=== PATIENT | female | born 1950 | race Caucasian/White ===

== ENCOUNTER 2017-04-30 06:55 | Outpatient (CLI) | payer OTHER ==
--- NOTE | 2017-05-04 09:56 | XRAY Report ---
DATE OF SERVICE: 04/30/2017 THREE VIEW LEFT KNEE: 04/30/2017 CLINICAL INDICATION: Pain. FINDINGS: AP, lateral, sunrise views of the left knee demonstrate no evidence of fracture or disloca tion. The joint spaces are preserved. No effusion is present. IMPRESSION: Normal left knee. TD: 04/30/2017 19:08
== END 2017-04-30 06:56 | disposition home or self-care (01) ==
LOC: DI 06:55
PROVIDERS: ATTEND Physician Assistant Medical
DX: M25.562 Pain in left knee (principal)

== ENCOUNTER 2017-08-05 08:00 | Outpatient (CLI) | payer OTHER ==
[2017-08-05 12:19] LABS: BASOPHILS % (AUTO) 0.9 %; EOSINOPHILS # (AUTO) 0.1 10^3/uL (0.0-0.7); EOSINOPHILS % (AUTO) 2.1 %; HGB - HEMOGLOBIN 13.5 g/dL (12.0-16.0); LYMPHOCYTES # (AUTO) 1.3 10^3/uL (1.5-3.5); LYMPHOCYTES % (AUTO) 26.6 %; MEAN CORPUSCULAR HEMOGLOBIN 29.5 pg (27.0-31.0); MEAN CORPUSCULAR HGB CONC 33.7 g/dL (32.0-36.0); MEAN CORPUSCULAR VOLUME 87.7 fL (81.0-99.0); MEAN PLATELET VOLUME 7.4 fL (7.9-10.8); MONOCYTES # (AUTO) 0.3 10^3/uL (0.0-1.0); MONOCYTES % (AUTO) 5.7 %; NEUTROPHILS # (AUTO) 3.3 10^3/uL (1.5-6.6); NEUTROPHILS % (AUTO) 64.7 %; PLT - PLATELET COUNT 245 10^3/uL (130-450); RED BLOOD COUNT 4.56 10^6/uL (4.20-5.40); RED CELL DISTRIBUTION WIDTH 13.6 % (12.0-15.0); WHITE BLOOD COUNT 5.1 x10^3/uL (4.8-10.8)
[2017-08-05 12:33] LABS: ALBUMIN 4.2 g/dL (3.2-5.5); ALBUMIN/GLOBULIN RATIO 1.4 (1.0-2.2); ALKALINE PHOSPHATASE 74 IU/L (42-121); ALT ALANINE AMINOTRANSFERASE 10 IU/L (10-60); AST ASPARTATE AMINOTRANSFERASE 12 IU/L (10-42); BILIRUBIN,TOTAL 0.3 mg/dL (0.2-1.0); BUN - BLOOD UREA NITROGEN 14 mg/dL (6-20); CALCIUM 9.2 mg/dL (8.5-10.3); CARBON DIOXIDE - CO2 29 mmol/L (21-32); CHLORIDE 101 mmol/L (101-111); CHOL/HDL RATIO 4.6 (<4.4); CHOLESTEROL 263 mg/dL; CREATININE 0.7 mg/dL (0.4-1.0); GFR - MDRD 84 (>89); GLUCOSE 83 mg/dL (70-100); HDL CHOLESTEROL 57 mg/dL; LDL CHOLESTEROL,CALCULATED 181 mg/dL; LDL/HDL RATIO 3.2 (<4.4); SODIUM 136 mmol/L (135-145); TOTAL PROTEIN 7.3 g/dL (6.7-8.2); VLDL CHOLESTEROL 25 mg/dL
[2017-08-05 13:41] LABS: THYROID STIMULATING HORMONE 2.59 uIU/mL (0.34-5.60)
[2017-08-06 13:31] LABS: HEPATITIS C ANTIBODY NON-REACTIVE (NON-REACTIVE)
== END 2017-08-05 08:01 | disposition home or self-care (01) ==
LOC: LAB.R 08:00
PROVIDERS: ATTEND Physician Assistant Medical
DX: E55.9 Vitamin D deficiency, unspecified (principal); R53.83 Other fatigue; E78.2 Mixed hyperlipidemia; Z11.59 Encounter for screening for other viral diseases; Z72.89 Other problems related to lifestyle; Z79.899 Other long term (current) drug therapy
CPT/HCPCS: 80053; 80061; 82306; 82607; 83721; 84443; 85025; 86803

== ENCOUNTER 2018-02-22 08:14 | Outpatient (CLI) | payer MEDICARE ==
[2018-02-22 13:50] LABS: CHOL/HDL RATIO 3.8 (<4.4); CHOLESTEROL 227 mg/dL; HDL CHOLESTEROL 60 mg/dL; LDL CHOLESTEROL,CALCULATED 142 mg/dL; LDL/HDL RATIO 2.4 (<4.4); VLDL CHOLESTEROL 25 mg/dL
== END 2018-02-22 08:15 | disposition home or self-care (01) ==
LOC: LAB.R 08:14
PROVIDERS: ATTEND Physician Assistant Medical
DX: E78.2 Mixed hyperlipidemia (principal); Z79.899 Other long term (current) drug therapy
CPT/HCPCS: 80061; 83721

== ENCOUNTER 2018-03-10 21:35 | Emergency (ER) | payer MEDICARE ==
[2018-03-10 22:08] LABS: BILIRUBIN,URINE NEGATIVE (NEGATIVE); GLUCOSE, URINE (UA) NEGATIVE (NEGATIVE); KETONES,URINE (UA) NEGATIVE (NEGATIVE); LEUKOCYTE ESTERASE, URINE SMALL (NEGATIVE); NITRITE,URINE NEGATIVE (NEGATIVE); OCCULT BLOOD,URINE MODERATE (NEGATIVE); PH,URINE 5.5 PH (5.0-7.5); PROTEIN,URINE 100 mg/dL (NEGATIVE); UROBILINOGEN,URINE 0.2 (NORMAL) E.U./dL (NORMAL)
[2018-03-10 22:10] LABS: CLARITY,URINE HAZY (CLEAR)
[2018-03-10] MEDS ORDERED: SODIUM CHLORIDE 0.9% 1,000 ML IV ONE (22:10)
--- NOTE | 2018-03-10 22:13 | ED Physician Documentation ---
PD HPI ABD PAIN - Stated complaint Stated Complaint: ABX PX/VOMITING - Chief complaint Chief Complaint: Abd Pain - History obtained from History obtained from: Patient, Family - History of Present Illness Timing - onset: Yesterday Timing - duration: Hours Timing - details: Abrupt onset, Now resolved Quality: Sharp, Pain Location: RLQ Radiation: Right flank Improved by: Meds (aleve helped yesterday) Worsened by: Other (leaning foreward onto all fours) Associated symptoms: Nausea, Vomiting Similar symptoms before: Has not had sx before Recently seen: Not recently seen - Additional information Additional information: Previously well 67-year-old female developed some acute right lower quadrant abdominal pain yesterday and this was severe and she had some resolution of the pain at the night and was able to sleep through the night. She had return of the pain this morning it is come and gone and she is now had severe pain a accompanied by nausea and vomiting. She relates that she is not able to get into any comfortable position with this and she is not able to make this pain worse. Here in the emergency department she has had a resolution of her pain and then again a mild bump in the pain. She has not had this type of pain previously. She has had her appendix out. Review of Systems Constitutional: denies: Fever, Chills, Myalgias Eyes: denies: Decreased vision Ears: denies: Ear pain Nose: denies: Congestion Throat: denies: Sore throat Cardiac: denies: Chest pain / pressure, Palpitations Respiratory: denies: Dyspnea, Cough GI: reports: Abdominal Pain, Nausea, Vomiting : denies: Dysuria, Frequency Skin: denies: Rash Musculoskeletal: denies: Neck pain, Back pain, Extremity pain Neurologic: denies: Generalized weakness, Focal weakness, Numbness PD PAST MEDICAL HISTORY - Past Medical History Cardiovascular: None Respiratory: None Endocrine/Autoimmune: None GI: None : None HEENT: None Psych: Anxiety, Claustrophobia Musculoskeletal: Other Derm: Eczema - Past Surgical History 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 - Present Medications Home Medications: Ambulatory Orders Medication Instructions Recorded Confirmed Triamcinolone 0.1% Cream [Kenalog 03/19/16 0.1% Cream] Hormone Tablet 03/10/18 Hydrocodone/Acetaminophen 1 - 2 each PO Q6H PRN #14 tablet 03/11/18 [Hydrocodon-Acetaminophen 5-325] - Allergies Allergies/Adverse Reactions: Allergies Allergy/AdvReac Type Severity Reaction Status Date / Time amoxicillin trihydrate * Allergy diarrhea Verified 03/10/18 21:43 [From Augmentin] codeine Allergy Nausea Verified 03/10/18 21:43 oxycodone HCl * Allergy Nausea Verified 03/10/18 21:43 [From OxyContin] potassium clavulanate * Allergy diarrhea Verified 03/10/18 21:43 [From Augmentin] - Social History Does the pt smoke?: No Smoking Status: Never smoker Does the pt drink ETOH?: Yes Does the pt have substance abuse?: No PD ED PE NORMAL - Vitals Vital signs reviewed: Yes (normal) - General General: Alert and oriented X 3, No acute distress, Well developed/nourished - HEENT HEENT: Atraumatic, PERRL, EOMI - Neck Neck: Supple, no meningeal sign - Cardiac Cardiac: RRR, No murmur - Respiratory Respiratory: No respiratory distress, Clear bilaterally - Abdomen Abdomen: Normal bowel sounds, Soft, Non tender, Non distended, No organomegaly - Back Back: No CVA TTP, No spinal TTP - Derm Derm: Normal color, Warm and dry, No rash - Extremities Extremities: No deformity, No edema - Neuro Neuro: Alert and oriented X 3, strike plate attacher 2-12 intact, No motor deficit, No sensory deficit, Normal speech Eye Opening: Spontaneous Motor: Obeys Commands Verbal: Oriented GCS Score: 15 - Psych Psych: Normal mood, Normal affect Results - Vitals Vitals: Vital Signs - 24 hr 03/10/18 03/11/18 21:39 00:01 Temperature 36 C L Heart Rate 73 82 Respiratory 18 16 Rate Blood Pressure 133/65 H 141/58 H O2 Saturation 100 98 Oxygen O2 Source Room air - Labs Labs: Laboratory Tests 03/10/18 03/10/18 03/10/18 21:48 22:35 22:35 WBC 7.4 RBC 4.22 Hgb 12.7 Hct 36.9 L MCV 87.5 MCH 30.2 MCHC 34.5 RDW 13.8 Plt Count 267 MPV 7.6 L Neut # (Auto) 5.5 Lymph # (Auto) 1.3 L [place] # (Auto) 0.4 Eos # (Auto) 0.1 Baso # (Auto) 0.0 Absolute Nucleated RBC 0.00 Nucleated RBC % 0.1 Sodium 138 Potassium 3.3 L Chloride 105 Carbon Dioxide 25 Anion Gap 8.0 BUN 17 Creatinine 0.6 Estimated GFR (MDRD) 100 Glucose 98 Calcium 8.8 Total Bilirubin 0.3 AST 12 ALT < 10 L Alkaline Phosphatase 93 Total Protein 6.5 L Albumin 3.9 Globulin 2.6 Albumin/Globulin Ratio 1.5 Lipase 43 Urine Color YELLOW Urine Clarity HAZY Urine pH 5.5 Ur Specific [place] >=1.030 H Urine Protein 100 H Urine Glucose (UA) NEGATIVE Urine Ketones NEGATIVE Urine Occult Blood MODERATE H Urine Nitrite NEGATIVE Urine Bilirubin NEGATIVE Urine Urobilinogen 0.2 (NORMAL) Ur Leukocyte Esterase SMALL H Urine RBC 11-25 H Urine WBC 6-10 H Ur Squamous Epith Cells MOD Squamous H Urine Crystals 11-25 Ca Oxalate Urine Bacteria Few Ur Microscopic Review INDICATED Urine Culture Comments NOT INDICATED 03/10/18 23:23 WBC RBC Hgb Hct MCV MCH MCHC RDW Plt Count MPV Neut # (Auto) Lymph # (Auto) [place] # (Auto) Eos # (Auto) Baso # (Auto) Absolute Nucleated RBC Nucleated RBC % Sodium Potassium Chloride Carbon Dioxide Anion Gap BUN Creatinine Estimated GFR (MDRD) Glucose Calcium Total Bilirubin AST ALT Alkaline Phosphatase Total Protein Albumin Globulin Albumin/Globulin Ratio Lipase Urine Color YELLOW Urine Clarity CLEAR Urine pH 6.0 Ur Specific [place] <=1.005 Urine Protein NEGATIVE Urine Glucose (UA) NEGATIVE Urine Ketones NEGATIVE Urine Occult Blood SMALL H Urine Nitrite NEGATIVE Urine Bilirubin NEGATIVE Urine Urobilinogen 0.2 (NORMAL) Ur Leukocyte Esterase TRACE H Urine RBC 0-5 Urine WBC 0-3 Ur Squamous Epith Cells RARE Squamous Urine Crystals Urine Bacteria Rare Ur Microscopic Review INDICATED Urine Culture Comments INDICATED - Rads (name of study) CT ab/pel without Radiology: Prelim report reviewed (Impression: 1. There is a 12 x 9 mm right ureteropelvic junction stone resulting in mild pelviectasis. 2 Right nephrolithiasis. 3 Right pelvic 6 x 3.5 cm cystic lesion. Pelvic ultrasound recommended for further characterization.), EMP read indepedently, See rad report pelvic ultrasound Radiology: Prelim report reviewed (Impression, 1. Normal uterus. 2 Right pelvic 4.9 cm simple cyst demonstrating benign features. 6-12-month follow-up pelvic ultrasound recommended. 2 Nonvisualization of left ovary.), EMP read indepedently, See rad report Procedures - Bedside sono Bedside sono by EMP: With use of bedside ultrasound the right kidney is imaged there is minimal hydronephrosis present. The kidney is sonographically nontender. PD MEDICAL DECISION MAKING - ED course Complexity details: reviewed old records, reviewed results, re-evaluated patient, considered differential, d/w patient, d/w family ED course: 67-year-old previously well female has developed some pain in her right flank that has been present intermittently for 2 months. She has been into see the doctor in the chiropractor. She states the symptoms have been off and on and today we have discovered that she has a large stone in the collecting system that is attempting to pass. It appears to be too large to pass and she will need referral to urology. Today we were concerned about the possibility of infection and obtained a catheterized urine specimen which did not appear to demonstrate infection. The patient's pain resolved in the emergency department and she appears comfortable now. Her laboratory studies were otherwise unremarkable. Her CT scan did demonstrate a cystic mass in the pelvis and this appears to be a simple ovarian cyst. This may be a part of the pain the patient is experiencing yesterday and today but overall appears to be a benign process. The patient will need referral to urology and we will provide some telephone numbers for and I have asked her to call her primary tomorrow for recommendations for a urologist. Departure - Departure Disposition: 01 Home, Self Care Clinical Impression: Ureterolithiasis Condition: Stable Instructions: ED Stone Renal W Colic Follow-Up: Iva Elias PA-C [Primary Care Provider] - Shannon Tariq MD [Physician No Access] - Jose Urbina MD [Physician No Access] - MELANI CLINE [Physician No Access] - Prescriptions: Hydrocodone/Acetaminophen [Hydrocodon-Acetaminophen 5-325] 1 - 2 each PO Q6H PRN #14 tablet PRN Reason: pain Comments: Today it appears that you have 2 large stones in the right kidney 1 of them appears to be trying to pass, and appears to be too large to pass. You will likely need to have lithotripsy done. Referral to a urologist is necessary.
[2018-03-10 22:15] LABS: BACTERIA,URINE Few /HPF (None Seen); CRYSTALS,URINE 11-25 Ca Oxalate /LPF; SQUAMOUS EPITHELIAL CELL,UR MOD Squamous (<= Few)
[2018-03-10 22:42] LABS: BASOPHILS % (AUTO) 0.6 %; EOSINOPHILS # (AUTO) 0.1 10^3/uL (0.0-0.7); HGB - HEMOGLOBIN 12.7 g/dL (12.0-16.0); LYMPHOCYTES # (AUTO) 1.3 10^3/uL (1.5-3.5); MEAN CORPUSCULAR HEMOGLOBIN 30.2 pg (27.0-31.0); MEAN CORPUSCULAR HGB CONC 34.5 g/dL (32.0-36.0); MEAN CORPUSCULAR VOLUME 87.5 fL (81.0-99.0); MEAN PLATELET VOLUME 7.6 fL (7.9-10.8); MONOCYTES # (AUTO) 0.4 10^3/uL (0.0-1.0); MONOCYTES % (AUTO) 5.7 %; NEUTROPHILS # (AUTO) 5.5 10^3/uL (1.5-6.6); NEUTROPHILS % (AUTO) 73.7 %; PLT - PLATELET COUNT 267 10^3/uL (130-450); RED BLOOD COUNT 4.22 10^6/uL (4.20-5.40); RED CELL DISTRIBUTION WIDTH 13.8 % (12.0-15.0); WHITE BLOOD COUNT 7.4 x10^3/uL (4.8-10.8)
[2018-03-10 22:57] LABS: ALBUMIN 3.9 g/dL (3.2-5.5); ALBUMIN/GLOBULIN RATIO 1.5 (1.0-2.2); ALKALINE PHOSPHATASE 93 IU/L (42-121); ALT ALANINE AMINOTRANSFERASE < 10 IU/L (10-60); AST ASPARTATE AMINOTRANSFERASE 12 IU/L (10-42); BILIRUBIN,TOTAL 0.3 mg/dL (0.2-1.0); BUN - BLOOD UREA NITROGEN 17 mg/dL (6-20); CALCIUM 8.8 mg/dL (8.5-10.3); CARBON DIOXIDE - CO2 25 mmol/L (21-32); CHLORIDE 105 mmol/L (101-111); CREATININE 0.6 mg/dL (0.4-1.0); GFR - MDRD 100 (>89); GLUCOSE 98 mg/dL (70-100); LIPASE 43 U/L (22-51); SODIUM 138 mmol/L (135-145); TOTAL PROTEIN 6.5 g/dL (6.7-8.2)
--- NOTE | 2018-03-10 22:59 | CT Report ---
Reason: RLQ pain with mild hydro on bedside Procedure Date: 03/10/2018 Accession Number: [id number] / [id number] Procedure: CT - Abdomen/Pelvis W/O CPT Code: FULL RESULT: EXAM: CT ABDOMEN AND PELVIS (CT KUB) EXAM DATE: 03/10/2018 10:38 PM. CLINICAL HISTORY: RLQ pain with mild hydro on bedside. COMPARISONS: None. TECHNIQUE: Routine axial helical CT imaging was performed through the abdomen and pelvis without IV contrast. Reconstructions: Coronal and sagittal. In accordance with CT protocol optimization, one or more of the following dose reduction techniques were utilized for this exam: automated exposure control, adjustment of mA and/or KV based on patient size, or use of iterative reconstructive technique. FINDINGS: Lung Bases: Unremarkable. Right Kidney/Ureter: There is a 12 x 9 mm stone at the ureteropelvic junction resulting in mild pelviectasis. Additional calyceal stones are seen within the right kidney measuring up to 9 mm. Left Kidney/Ureter: No stones, hydronephrosis, or hydroureter. No perinephric fat stranding. Other Solid Organs: Noncontrast images of the solid organs are grossly unremarkable. Gallbladder/Bile Ducts: Unremarkable. Peritoneal Cavity: No free fluid, free air or heidi adenopathy. Bowel is grossly unremarkable. Pelvic Organs: There is a 6.0 x 3.5 cm right pelvic cyst. No pelvic fluid collections. No lymphadenopathy. Vasculature: Unremarkable. Other: None. IMPRESSION: 1. There is a 12 x 9 mm right ureteropelvic junction stone resulting in mild pelviectasis. 2. Right nephrolithiasis. 3. Right pelvic 6.0 x 3.5 cm cystic lesion. Pelvic ultrasound recommended for further characterization. RADIA
[2018-03-10 23:32] LABS: BILIRUBIN,URINE NEGATIVE (NEGATIVE); GLUCOSE, URINE (UA) NEGATIVE (NEGATIVE); KETONES,URINE (UA) NEGATIVE (NEGATIVE); LEUKOCYTE ESTERASE, URINE TRACE (NEGATIVE); NITRITE,URINE NEGATIVE (NEGATIVE); OCCULT BLOOD,URINE SMALL (NEGATIVE); PROTEIN,URINE NEGATIVE (NEGATIVE); UROBILINOGEN,URINE 0.2 (NORMAL) E.U./dL (NORMAL)
[2018-03-10 23:41] LABS: BACTERIA,URINE Rare /HPF (None Seen); CLARITY,URINE CLEAR (CLEAR); RBC,URINE 0-5 /HPF (0-5); SQUAMOUS EPITHELIAL CELL,UR RARE Squamous (<= Few)
--- NOTE | 2018-03-11 00:21 | Ultrasound Report ---
Reason: RLQ pain Procedure Date: 03/10/2018 Accession Number: [id number] / [id number] Procedure: US - Pelvic w/Doppler Complete CPT Code: FULL RESULT: EXAM: PELVIC ULTRASOUND EXAM DATE: 03/11/2018 12:25 AM. CLINICAL HISTORY: Right lower quadrant pain. COMPARISON: ABDOMEN/PELVIS W/O 03/10/2018 10:34 PM. TECHNIQUE: Realtime transabdominal pelvic scan performed to identify the uterus and adnexa and as an overview of other pelvic structures, with static image documentation. FINDINGS: Uterus: 3.4 x 1.9 x 2.7 cm, volume 9.3 cc. Anteverted position. Normal overall size and echotexture. Masses: None. Endometrium: 2 mm. Normal. Cervix: Unremarkable. Right Ovary: There is a 4.9 x 3.9 x 3.6 cm right pelvic cyst. Adjacent free fluid noted however no normal ovarian tissue seen. Left Ovary: Not well visualized. Free Fluid: None. Other: None. IMPRESSION: 1. Normal uterus. 2. Right pelvic 4.9 cm simple cyst demonstrating benign features. 6-12 month follow-up pelvic ultrasound recommended. 3. Nonvisualization of left ovary. RADIA
[2018-03-11 01:12] VITALS: BP 123/80
== END 2018-03-11 01:22 | disposition home or self-care (01) ==
LOC: ED 21:35
DX: N20.2 Calculus of kidney with calculus of ureter (principal); N94.89 Other specified conditions associated with female genital organs and menstrual cycle
CPT/HCPCS: 36415; 74176; 76856; 80053; 81001; 81003; 83690; 85025; 87086; 93975; 96360; 99283; 99284

== ENCOUNTER 2018-03-15 23:33 | Outpatient (CLI) | payer MEDICARE | END 2018-03-15 23:34 | disposition critical access hospital (66) | LOC: EMS 23:33 | PROVIDERS: ATTEND Surgery | DX: R10.9 Unspecified abdominal pain (principal); R11.0 Nausea | CPT/HCPCS: A0425; A0427 ==

== ENCOUNTER 2018-03-15 23:44 | Emergency (ER) | payer MEDICARE ==
--- NOTE | 2018-03-16 00:29 | ED Physician Documentation ---
PD HPI ABD PAIN - Stated complaint Stated Complaint: FLANK PAIN, N/V - Chief complaint Chief Complaint: Abd Pain - History obtained from History obtained from: Patient - History of Present Illness Timing - onset: Today (this evening) Timing - details: Abrupt onset, Constant, Waxing and waning Pain level max: 10 Pain level now: 10 Quality: Pain Location: RUQ Radiation: Right flank Improved by: Other (nothing) Worsened by: Other (no apparent exacerbating factors) Associated symptoms: Nausea, Vomiting. No: Fever, Diarrhea, Constipation Similar symptoms before: Diagnosis (renal colic) Recently seen: Clinic, Emergency Dept - Additional information Additional information: T+R from this ED 03/10/18, presented with right flank pain and CT revealed a large renal calculus (12mm) in UPJ. She did not require any pain medication in the ED on that visit, as the pain resolved spontaneously. She followed-up with urology in [place] the following day and is scheduled for a procedure towards the end of this month. Tonight, she had sudden recurrence of the pain, right flank. It was initially mild/moderate, and thus she took one dose of Vicodin. The pain rapidly worsened, however, and thus she took a second dose. However, she now had nausea and vomiting. Called 911 and had relief en route with IV fentanyl and zofran. At the time of my evaluation of her, she is again in obvious painful distress and vomiting during HPI Review of Systems Constitutional: reports: Sweats. denies: Fever, Chills Eyes: reports: Reviewed and negative Ears: reports: Reviewed and negative Nose: reports: Reviewed and negative Cardiac: reports: Reviewed and negative Respiratory: reports: Reviewed and negative GI: reports: Abdominal Pain (right flank), Nausea, Vomiting. 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 Medications Home Medications: Ambulatory Orders Medication Instructions Recorded Confirmed Triamcinolone 0.1% Cream [Kenalog 03/19/16 0.1% Cream] Hormone Tablet 03/10/18 Hydrocodone/Acetaminophen 1 - 2 each PO Q6H PRN #14 tablet 03/11/18 [Hydrocodon-Acetaminophen 5-325] - Allergies Allergies/Adverse Reactions: Allergies Allergy/AdvReac Type Severity Reaction Status Date / Time amoxicillin trihydrate * Allergy diarrhea Verified 03/15/18 23:53 [From Augmentin] codeine Allergy Nausea Verified 03/15/18 23:53 oxycodone HCl * Allergy Nausea Verified 03/15/18 23:53 [From OxyContin] potassium clavulanate * Allergy diarrhea Verified 03/15/18 23:53 [From Augmentin] sulfamethoxazole Allergy Nausea Verified 03/15/18 23:53 [From Bactrim] trimethoprim [From Bactrim] Allergy Nausea Verified 03/15/18 23:53 - Social History Does the pt smoke?: No Smoking Status: Never smoker Does the pt drink ETOH?: Yes Does the pt have substance abuse?: No - Immunizations Immunizations are current?: Yes - POLST Patient has POLST: No PD ED PE NORMAL - Vitals Vital signs reviewed: Yes - General General: Alert and oriented X 3, Well developed/nourished, Other (severe painful distress, vomiting) - HEENT HEENT: Moist mucous membranes - Neck Neck: Supple, no meningeal sign - Cardiac Cardiac: No murmur - Respiratory Respiratory: No respiratory distress, Clear bilaterally - Abdomen Abdomen: Soft, Non tender - Back Back: No CVA TTP - Derm Derm: Normal color, Warm and dry - Extremities Extremities: No edema - Neuro Neuro: Alert and oriented X 3 PD ED PE EXPANDED - Cardiac Cardiac: Tachy, Regular Rhythm Results - Vitals Vitals: Vital Signs - 24 hr 03/15/18 03/16/18 03/16/18 23:48 02:58 05:25 Temperature 36.4 C L Heart Rate 69 65 73 Respiratory 16 16 16 Rate Blood Pressure 128/77 136/73 H 113/74 O2 Saturation 98 98 97 Oxygen O2 Source Room air - Labs Labs: Laboratory Tests 03/16/18 03/16/18 03/16/18 01:05 01:12 01:12 WBC 12.8 H RBC 4.30 Hgb 12.8 Hct 37.9 MCV 88.1 MCH 29.8 MCHC 33.8 RDW 14.0 Plt Count 265 MPV 7.8 L Neut # (Auto) 11.3 H Lymph # (Auto) 1.1 L [place] # (Auto) 0.4 Eos # (Auto) 0.0 Baso # (Auto) 0.0 Absolute Nucleated RBC 0.00 Nucleated RBC % 0.0 Sodium 138 Potassium 4.0 Chloride 102 Carbon Dioxide 25 Anion Gap 11.0 BUN 25 H Creatinine 0.9 Estimated GFR (MDRD) 63 L Glucose 147 H Calcium 9.4 Urine Color YELLOW Urine Clarity CLEAR Urine pH 6.0 Ur Specific [place] >=1.030 H Urine Protein NEGATIVE Urine Glucose (UA) NEGATIVE Urine Ketones 15 H Urine Occult Blood MODERATE H Urine Nitrite NEGATIVE Urine Bilirubin NEGATIVE Urine Urobilinogen 0.2 (NORMAL) Ur Leukocyte Esterase TRACE H Urine RBC 6-10 H Urine WBC 6-10 H Ur Squamous Epith Cells FEW Squamous Urine Crystals 3-5 Calcium Oxalate Urine Bacteria Few Ur Microscopic Review INDICATED Urine Culture Comments INDICATED PD MEDICAL DECISION MAKING - ED course Complexity details: reviewed old records, reviewed results, re-evaluated patient, considered differential, d/w patient ED course: patient had significant improvement in her pain with IV dilaudid and zofran in ED, although the pain gradually worsened and required repeat dosing of dilaudid. D/W urology group contract analyst at [place] (Dr. Gibbs, who is the urologist patient saw on Wednesday). After discussion of options, it was agreed that the best plan would be to send patient to [facility] to be admitted to hospitalist for ongoing symptom control and urology can hopefully place a stent later today. D/W Dr. Jacobs (hospitalist at [facility]), accepts transfer Departure - Departure Disposition: 02 Transfer Acute Care Hosp Clinical Impression: Renal colic on right side Condition: Good
[2018-03-16] MEDS ORDERED: KETOROLAC 60 MG/2 ML VIAL IVP STA (00:48)
[2018-03-16] MEDS ORDERED: ONDANSETRON 4 MG/2 ML VIAL IVP STA (00:48)
[2018-03-16] MEDS ORDERED: HYDROmorphone 1 MG/ML CARPUJECT IVP STA ×2 (00:48→06:06)
[2018-03-16 01:21] LABS: BILIRUBIN,URINE NEGATIVE (NEGATIVE); GLUCOSE, URINE (UA) NEGATIVE (NEGATIVE); KETONES,URINE (UA) 15 mg/dL (NEGATIVE); LEUKOCYTE ESTERASE, URINE TRACE (NEGATIVE); NITRITE,URINE NEGATIVE (NEGATIVE); OCCULT BLOOD,URINE MODERATE (NEGATIVE); PROTEIN,URINE NEGATIVE (NEGATIVE); UROBILINOGEN,URINE 0.2 (NORMAL) E.U./dL (NORMAL)
[2018-03-16 01:26] LABS: BASOPHILS % (AUTO) 0.3 %; CALCIUM 9.4 mg/dL (8.5-10.3); CREATININE 0.9 mg/dL (0.4-1.0); EOSINOPHILS % (AUTO) 0.2 %; HGB - HEMOGLOBIN 12.8 g/dL (12.0-16.0); LYMPHOCYTES # (AUTO) 1.1 10^3/uL (1.5-3.5); LYMPHOCYTES % (AUTO) 8.3 %; MEAN CORPUSCULAR HEMOGLOBIN 29.8 pg (27.0-31.0); MEAN CORPUSCULAR HGB CONC 33.8 g/dL (32.0-36.0); MEAN CORPUSCULAR VOLUME 88.1 fL (81.0-99.0); MEAN PLATELET VOLUME 7.8 fL (7.9-10.8); MONOCYTES # (AUTO) 0.4 10^3/uL (0.0-1.0); MONOCYTES % (AUTO) 3.3 %; NEUTROPHILS # (AUTO) 11.3 10^3/uL (1.5-6.6); NEUTROPHILS % (AUTO) 87.9 %; PLT - PLATELET COUNT 265 10^3/uL (130-450); WHITE BLOOD COUNT 12.8 x10^3/uL (4.8-10.8)
[2018-03-16 01:29] LABS: BACTERIA,URINE Few /HPF (None Seen); CLARITY,URINE CLEAR (CLEAR); SQUAMOUS EPITHELIAL CELL,UR FEW Squamous (<= Few)
[2018-03-16 01:30] LABS: CRYSTALS,URINE 3-5 Calcium Oxalate /LPF
[2018-03-16] MEDS ORDERED: SODIUM CHLORIDE 0.9% 500 ML IV STA (04:35)
[2018-03-16] MEDS ORDERED: SODIUM CHLORIDE 0.9% 1,000 ML IV STA (04:35)
[2018-03-16 06:30] VITALS: BP 113/61
== END 2018-03-16 06:58 | disposition short-term general hospital (02) ==
LOC: EDUNIT# → ED 23:44
DX: N23 Unspecified renal colic (principal); Z87.442 Personal history of urinary calculi
CPT/HCPCS: 36415; 80048; 81001; 85025; 87086; 96361; 96374; 96375; 96376; 99284; J1170; 81003; 99283

== ENCOUNTER 2018-03-16 06:43 | Outpatient (CLI) | payer MEDICARE | END 2018-03-16 06:44 | disposition short-term general hospital (02) | LOC: EMS 06:43 | PROVIDERS: ATTEND Surgery | DX: N20.0 Calculus of kidney (principal) | CPT/HCPCS: A0425; A0426 ==

== ENCOUNTER 2018-04-28 10:46 | Outpatient (CLI) | payer MEDICARE ==
[2018-04-28 11:16] LABS: ALBUMIN 4.1 g/dL (3.2-5.5); ALBUMIN/GLOBULIN RATIO 1.3 (1.0-2.2); BILIRUBIN,TOTAL 0.7 mg/dL (0.2-1.0); CALCIUM 9.5 mg/dL (8.5-10.3); CREATININE 0.9 mg/dL (0.4-1.0); TOTAL PROTEIN 7.3 g/dL (6.7-8.2); URIC ACID 4.2 mg/dL (2.6-7.2)
== END 2018-04-28 10:47 | disposition home or self-care (01) ==
LOC: LAB 10:46
DX: N20.0 Calculus of kidney (principal)
CPT/HCPCS: 36415; 80053; 83970; 84550

== ENCOUNTER 2018-06-16 09:57 | Outpatient (CLI) | payer MEDICARE ==
[2018-06-16 10:26] LABS: ALBUMIN 3.9 g/dL (3.2-5.5); ALBUMIN/GLOBULIN RATIO 1.2 (1.0-2.2); BILIRUBIN,TOTAL 0.7 mg/dL (0.2-1.0); CALCIUM 9.2 mg/dL (8.5-10.3); CREATININE 0.7 mg/dL (0.4-1.0); TOTAL PROTEIN 7.1 g/dL (6.7-8.2); URIC ACID 3.5 mg/dL (2.6-7.2)
== END 2018-06-16 09:58 | disposition home or self-care (01) ==
LOC: LAB 09:57
DX: N20.0 Calculus of kidney (principal)
CPT/HCPCS: 36415; 80053; 83970; 84550

== ENCOUNTER 2018-08-19 10:12 | Outpatient (CLI) | payer MEDICARE ==
--- NOTE | 2018-08-19 12:24 | DEXA Report ---
Reason: AGE-RELATED OSTEOPOROSIS W/O CURRENT PATHOLOGICAL Procedure Date: 08/19/2018 Accession Number: [id number] / [id number] Procedure: DEX - Dexa Spine and/or Hip CPT Code: FULL RESULT: EXAM: Dexa Spine and/or Hip DATE: 08/19/2018 10:58 AM CLINICAL HISTORY: AGE-RELATED OSTEOPOROSIS W/O CURRENT PATHOLOGICAL TECHNIQUE: Dual energy x-ray absorptiometry (DXA) was performed on a [employer] System. Regions measured are the AP Spine, femoral neck, and if needed forearm. COMPARISON: The 09/19/2012 examination is not comparable because that exam was performed on a device of a different instructor physical. In accordance with the International Society for Clinical Densitometry (ISCD) guidelines, data from previous exams may be reanalyzed using current recommendations and techniques. This is done to allow a more accurate basis for comparison with the current study. FINDINGS: The data for the lumbar spine is as follows: BMD (g/cm/cm) T-SCORE Z-SCORE REGION L1 0.821 -2.6 -0.9 L2 0.851 -2.9 -1.3 L3 0.887 -2.6 -1.0 L4 0.802 -3.3 -1.7 TOTAL 0.840 -2.8 -1.2 NOTE: All evaluable vertebrae are used for classification The data for the hip is as follows: BMD (g/cm/cm) T-SCORE Z-SCORE REGION Neck 0.765 -2.0 -0.4 TOTAL 0.762 -2.0 -0.6 NOTE: The femoral neck or total proximal femur, whichever is lowest, is used for classification. IMPRESSION: THE WHO CLASSIFICATION BASED ON THE INTERNATIONAL REFERENCE STANDARD IS OSTEOPOROSIS. THE FRACTURE RISK IS HIGH. RECOMMENDATION: Patients with diagnosis of osteoporosis or osteopenia should have regular bone mineral density assessment. For those eligible for Medicare, routine testing is allowed once every 2 years. Testing frequency can be increased for patients who have rapidly progressing disease or for those who are receiving medical therapy to restore bone mass. COMMENT: World Health Organization (WHO) definitions for osteoporosis and osteopenia: NORMAL BMD: T-score at -1.0 or higher, fracture risk is low OSTEOPENIA BMD: T-score between -1.0 and -2.5, fracture risk is increased. OSTEOPOROSIS BMD: T-score at -2.5 or lower, fracture risk is high. National Osteoporosis Foundation recommends: 1. Obtain adequate dietary calcium (at least 1200 mg per day) and vitamin D (400-800 international units per day). 2. Participate, as appropriate, in regular weightbearing and muscle-strengthening exercise. 3. Avoid tobacco use and reduce alcohol and caffeine intake. 4. For more detailed information see the website at www.NOF.org.
== END 2018-08-19 10:13 | disposition home or self-care (01) ==
LOC: DI 10:12
PROVIDERS: ATTEND Internal Medicine
DX: M81.0 Age-related osteoporosis without current pathological fracture (principal)
CPT/HCPCS: 77080

== ENCOUNTER 2021-01-28 15:27 | Emergency (ER) | payer MEDICARE ==
[2021-01-28 15:56] LABS: BASOPHILS # (AUTO) 0.1 10^3/uL (0.0-0.1); BASOPHILS % (AUTO) 0.6 %; EOSINOPHILS % (AUTO) 0.1 %; HCT - HEMATOCRIT 42.5 % (37.0-47.0); HGB - HEMOGLOBIN 13.8 g/dL (12.0-16.0); LYMPHOCYTES # (AUTO) 1.1 10^3/uL (1.5-3.5); MEAN CORPUSCULAR HEMOGLOBIN 29.4 pg (27.0-31.0); MEAN CORPUSCULAR HGB CONC 32.5 g/dL (32.0-36.0); MEAN CORPUSCULAR VOLUME 90.6 fL (81.0-99.0); MEAN PLATELET VOLUME 8.8 fL (7.9-10.8); MONOCYTES # (AUTO) 0.2 10^3/uL (0.0-1.0); MONOCYTES % (AUTO) 2.1 %; NEUTROPHILS # (AUTO) 7.9 10^3/uL (1.5-6.6); NEUTROPHILS % (AUTO) 84.9 %; PLT - PLATELET COUNT 282 10^3/uL (130-450); RED BLOOD COUNT 4.69 10^6/uL (4.20-5.40); RED CELL DISTRIBUTION WIDTH 13.7 % (12.0-15.0); WHITE BLOOD COUNT 9.4 x10^3/uL (4.8-10.8)
[2021-01-28 16:07] LABS: ALBUMIN 4.5 g/dL (3.2-5.5); ALBUMIN/GLOBULIN RATIO 1.6 (1.0-2.2); BILIRUBIN,TOTAL 0.8 mg/dL (0.2-1.0); CALCIUM 9.6 mg/dL (8.5-10.3); CREATININE 0.7 mg/dL (0.4-1.0); TOTAL PROTEIN 7.4 g/dL (6.7-8.2)
[2021-01-28 16:48] LABS: BILIRUBIN,URINE NEGATIVE (NEGATIVE); GLUCOSE, URINE (UA) NEGATIVE (NEGATIVE); KETONES,URINE (UA) NEGATIVE (NEGATIVE); LEUKOCYTE ESTERASE, URINE NEGATIVE (NEGATIVE); NITRITE,URINE NEGATIVE (NEGATIVE); OCCULT BLOOD,URINE SMALL (NEGATIVE); PROTEIN,URINE NEGATIVE (NEGATIVE); UROBILINOGEN,URINE 0.2 (NORMAL) E.U./dL (NORMAL)
[2021-01-28 16:53] LABS: CLARITY,URINE CLEAR (CLEAR)
[2021-01-28 17:01] LABS: BACTERIA,URINE Few /HPF (None Seen); SQUAMOUS EPITHELIAL CELL,UR MOD Squamous (<= Few); WBC,URINE 0-3 /HPF (0-5)
[2021-01-28] MEDS ORDERED: KETOROLAC 30 MG/ML VIAL IVP STA (17:15)
[2021-01-28] MEDS ORDERED: HYDROmorphone 1 MG/ML CARPUJECT IVP STA (17:15)
[2021-01-28] MEDS ORDERED: ONDANSETRON 4 MG/2 ML VIAL IVP STA (17:15)
--- NOTE | 2021-01-28 17:18 | ED Physician Documentation ---
PD HPI ABD PAIN - Stated complaint Stated Complaint: NAUSEA/BACK & ABD PX - Chief complaint Chief Complaint: Abd Pain - Additional information Additional information: L abd / flank pain 7-01/10 achy pain starting today. Increase with motion. Radiates to back. No visible hematuria. Assoc with N/V. 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 - Present Medications Home Medications: Ambulatory Orders Medication Instructions Recorded Confirmed Triamcinolone 0.1% Cream [Kenalog 03/19/16 0.1% Cream] Hormone Tablet 03/10/18 Hydrocodone/Acetaminophen 1 - 2 each PO Q6H PRN #14 tablet 03/11/18 [Hydrocodon-Acetaminophen 5-325] - Allergies Allergies/Adverse Reactions: Allergies Allergy/AdvReac Type Severity Reaction Status Date / Time amoxicillin trihydrate * Allergy diarrhea Verified 01/28/21 15:38 [From Augmentin] codeine Allergy Nausea Verified 01/28/21 15:38 oxycodone HCl * Allergy Nausea Verified 01/28/21 15:38 [From OxyContin] potassium clavulanate * Allergy diarrhea Verified 01/28/21 15:38 [From Augmentin] sulfamethoxazole Allergy Nausea Verified 01/28/21 15:38 [From Bactrim] trimethoprim [From Bactrim] Allergy Nausea Verified 01/28/21 15:38 - Social History Does the pt smoke?: No Smoking Status: Never smoker Does the pt drink ETOH?: Yes Does the pt have substance abuse?: No - Immunizations Immunizations are current?: Yes - POLST Patient has POLST: No PD ED PE NORMAL - Vitals Vital signs reviewed: Yes - General General: Alert and oriented X 3, Other (uncomfortable) - HEENT HEENT: PERRL, EOMI - Neck Neck: Supple, no meningeal sign, No bony TTP - Cardiac Cardiac: RRR, No murmur - Respiratory Respiratory: No respiratory distress, Clear bilaterally - Abdomen Abdomen: Normal bowel sounds, Soft, Non tender - Back Back: No CVA TTP, No spinal TTP - Derm Derm: Normal color, Warm and dry - Extremities Extremities: No edema, No calf tenderness / cord - Neuro Neuro: Alert and oriented X 3, Normal speech Results - Vitals Vitals: Vital Signs - 24 hr 01/28/21 15:38 Temperature 37 C Heart Rate 87 Respiratory 20 Rate Blood Pressure 183/110 H O2 Saturation 100 Oxygen O2 Source Room air - Labs Labs: Laboratory Tests 01/28/21 01/28/21 01/28/21 15:50 15:50 16:25 WBC 9.4 RBC 4.69 Hgb 13.8 Hct 42.5 MCV 90.6 MCH 29.4 MCHC 32.5 RDW 13.7 Plt Count 282 MPV 8.8 Neut # (Auto) 7.9 H Lymph # (Auto) 1.1 L Jew[place] # (Auto) 0.2 Eos # (Auto) 0.0 Baso # (Auto) 0.1 Absolute Nucleated RBC 0.00 Nucleated RBC % 0.0 Sodium 138 Potassium 4.0 Chloride 101 Carbon Dioxide 28 Anion Gap 9.0 BUN 17 Creatinine 0.7 Estimated GFR (MDRD) 83 L Glucose 117 H Calcium 9.6 Total Bilirubin 0.8 AST 14 ALT 13 Alkaline Phosphatase 53 Total Protein 7.4 Albumin 4.5 Globulin 2.9 Albumin/Globulin Ratio 1.6 Lipase 48 Urine Color YELLOW Urine Clarity CLEAR Urine pH 6.0 Ur Specific [place] 1.020 Urine Protein NEGATIVE Urine Glucose (UA) NEGATIVE Urine Ketones NEGATIVE Urine Occult Blood SMALL H Urine Nitrite NEGATIVE Urine Bilirubin NEGATIVE Urine Urobilinogen 0.2 (NORMAL) Ur Leukocyte Esterase NEGATIVE Urine RBC 6-10 H Urine WBC 0-3 Ur Squamous Epith Cells MOD Squamous H Urine Bacteria Few Ur Microscopic Review INDICATED Urine Culture Comments NOT INDICATED PD MEDICAL DECISION MAKING - ED course ED course: 70-year-old woman presents with symptoms reminiscent of prior renal colic and in a lot of pain. After the administration of pain medication she was pain-free here. CT of the abdomen and pelvis was done and findings discussed with her, recently passed stone but discussed need for follow-up for right adnexal cyst despite the fact that it seems that it is stable to getting smaller, but at her age this still mandates gynecology follow-up. Departure - Departure Disposition: 01 Home, Self Care Clinical Impression: Renal colic Condition: Good Record reviewed to determine appropriate education?: Yes Instructions: ED Stone Renal W Colic Follow-Up: Vivian Alfaro MD [Provider Admit Priv/Credential] - Comments: CAT scan today demonstrates that she likely had a 3 mm stone that passed while you were here. This explains the lack of pain now. We did find that you had right-sided nephrolithiasis which may bother you some day and you also have a right ovarian cyst. On prior imaging in March 2018 the size of that was 6 x 3.5 cm, now measuring 4.2 x 4.1 cm. You do need to follow-up with a upper trimmer for evaluation of this, return for new or worsening symptoms.
--- NOTE | 2021-01-28 18:23 | CT Report ---
PROCEDURE: Abdomen/Pelvis WO INDICATIONS: flank pain TECHNIQUE: Noncontrast 5 mm thick sections acquired from the diaphragms to the symphysis. 5 mm coronal and sagi ttal reformats were then performed. For radiation dose reduction, the following was used: automated exposure control, adjustment of mA and/or kV according to patient size. COMPARISON: 03/10/2018. FINDINGS: Image quality: Excellent. ABDOMEN: Lung bases: Lung bases are clear. Heart size is normal. Solid organs: Liver and spleen are normal in size. Gallbladder is within normal limits. Pancreas i s normal in contours. No adrenal nodules. Kidneys are normal in size. There is mild to moderate lef t-sided hydronephrosis. No right-sided hydronephrosis is seen. Multiple nonobstructing tiny right justin al calculi are seen measures up to 2 mm in size. There is mild left-sided hydroureter extending to th e level of left UVJ. No right-sided hydroureter. Peritoneum and bowel: There is a small hiatal hernia. No bowel obstruction or abnormal bowel wall thi ckening. No abscess collection. No free fluid of free air. Mild sigmoid diverticulosis is seen, no CT evidence of acute diverticulitis. Nodes and vessels: No retroperitoneal or mesenteric adenopathy by size criteria. Aorta and inferior vena cava are normal in caliber. Miscellaneous: No ventral hernias. PELVIS: Genitourinary: Bladder wall thickness is normal. 3 mm calcification in dependent portion of bladder wall is seen series 3 image 77. 4.2 x 4.1 cm cystic structure in right adnexa is seen. Uterus and le ft adnexa show no gross abnormality. Miscellaneous: No inguinal hernias or adenopathy. Bones: No suspicious bony lesions. No vertebral body compression fractures. Degenerative disc dise ase throughout lumbar spine is seen. IMPRESSION: 1. Finding is suggestive of a passed 3 mm left-sided renal stone with mild residual left-sided hydron ephrosis and hydroureter. Nonobstructing small right renal calculi without right-sided hydronephrosis or hydroureter. Normal-appearing urinary bladder. 2. No bowel obstruction. No abnormal bowel wall thickening. No free fluid of free air. Sigmoid divert iculosis without evidence of acute diverticulitis. 3. Suggestion of a 4.2 x 4.1 cm right ovarian cyst, suggest CROSS COUNTRY/TRACK AND FIELD COACH correlation and follow-up. Reviewed by: Lasha Park MD on 01/28/2021 6:22 PM PDT Approved by: Lsaha Park MD on 01/28/2021 6:22 PM PDT Station ID: [id number]
[2021-01-28 19:08] VITALS: BP 102/61
== END 2021-01-28 19:08 | disposition home or self-care (01) ==
LOC: ED 15:27
DX: N13.2 Hydronephrosis with renal and ureteral calculous obstruction (principal)
CPT/HCPCS: 36415; 74176; 80053; 81001; 83690; 85025; 96374; 96375; 99283; 99284; J1170; 81003; 87086

== ENCOUNTER 2021-04-01 14:59 | Outpatient (CLI) | payer MEDICARE ==
--- NOTE | 2021-04-02 16:59 | Ultrasound Report ---
PROCEDURE: Pelvic w/Transvaginal INDICATIONS: HX OF OVARIAN CYST TECHNIQUE: Real-time scanning was performed of the pelvic organs, with image documentation. Additional endovagi nal scanning was necessary due to incomplete visualization of the adnexal and endometrial structures by transabdominal scanning. COMPARISON: None. FINDINGS: No pathologic free abdominal or pelvic fluid. Uterus: Uterus is normal in size at 4.6 x 1.4 x 2.5 cm. The endometrium measures 2.6 mm in combined thickness. Ovaries: Right ovary demonstrates a 41 mm cyst and is otherwise unremarkable. Left ovary is grossly unremarkable. IMPRESSION: Right ovarian cyst. Otherwise negative examination. Reviewed by: Iker Barker MD on 04/02/2021 4:58 PM PST Approved by: Iker Barker MD on 04/02/2021 4:58 PM PST Station ID: [id number]
== END 2021-04-01 15:00 | disposition home or self-care (01) ==
LOC: DI 14:59
PROVIDERS: ATTEND Obstetrics & Gynecology
DX: N83.201 Unspecified ovarian cyst, right side (principal)

== ENCOUNTER 2021-04-02 08:06 | Outpatient (CLI) | payer MEDICARE ==
--- NOTE | 2021-04-02 09:15 | DEXA Report ---
PROCEDURE: Dexa Spine and/or Hip INDICATIONS: OSTEOPOROSIS, HX OF OVARIAN CYST TECHNIQUE: Dual energy x-ray absorptiometry (DXA) was performed on a [employer] System. Regions measur ed are the AP Spine, femoral neck, and if needed forearm. COMPARISON: 08/19/2018. FINDINGS: Lumbar Spine: Bone Mineral Density 0.924 g/cm/cm,T score -2.1. There is interval 10.4% increase in total lumbar spine bone mineral density. Left Hip: Bone Mineral Density 0.810 g/cm/cm,T score -1.6 there is interval 6.3% increase in left total hip coby ne mineral density. Left Femoral Neck: Bone Mineral Density 0.759 g/cm/cm, T score -2.0. (T score greater or equal to -1.0: NORMAL) (T score from -1.1 to -2.4: OSTEOPENIA) (T score less than or equal to -2.5 to: OSTEOPOROSIS) Impression: Osteopenia. Patients with diagnosis of osteoporosis or osteopenia should have regular bone mineral density assess ment. For those eligible for Medicare, routine testing is allowed once every 2 years. Testing frequ ency can be increased for patients who have rapidly progressing disease or for those who are receivin g medical therapy to restore bone mass. Reviewed by: Lasha Park MD on 04/02/2021 9:14 AM PST Approved by: Lasha Park MD on 04/02/2021 9:14 AM PST Station ID: [id number]
== END 2021-04-02 08:07 | disposition home or self-care (01) ==
LOC: DI 08:06
PROVIDERS: ATTEND Physician Assistant
DX: M81.0 Age-related osteoporosis without current pathological fracture (principal); Z87.42 Personal history of other diseases of the female genital tract
CPT/HCPCS: 36415; 86304

== ENCOUNTER 2021-04-02 08:44 | Outpatient (CLI) | payer MEDICARE | END 2021-04-02 08:45 | disposition home or self-care (01) | LOC: LAB 08:44 | PROVIDERS: ATTEND Obstetrics & Gynecology | DX: Z87.42 Personal history of other diseases of the female genital tract (principal) | CPT/HCPCS: 36415; 86304 ==

== ENCOUNTER 2024-01-27 10:20 | Outpatient (CLI) | payer MEDICARE ==
--- NOTE | 2024-01-28 08:33 | Mammography Report ---
BILATERAL DIGITAL SCREENING MAMMOGRAM 3D/2D WITH EXAGGERATED CC: 01/27/2024 CLINICAL: Routine screening. Comparison is made to exams dated: 12/03/2014 mammogram and 11/16/2014 mammogram - [facility]. The breasts are heterogeneously dense, which may obscure small masses (category c / 51-75% glandular tissue). No significant masses, calcifications, or other findings are seen in either breast. There has been no significant interval change. IMPRESSION: NEGATIVE There is no mammographic evidence of malignancy. A 1 year screening mammogram is recommended. Based on the Tyrer Cuzick model (a risk assessment model) the patient's lifetime risk is 7.6% and her 10 year risk is 5.7%. According to the ACR, ACS, and NCCN guidelines, an annual breast MRI exam michele g with mammogram is recommended if the patient's lifetime risk is 20% or greater. This exam was interpreted at Station ID: [id number]. NOTE: For mammograms, a report in lay terms will be sent to the patient. Approximately 15% of breast malignancies will not be visualized mammographically. In the management of a palpable breast mass, a negative mammogram must not discourage biopsy of a clinically suspicious lesion. Electronically Signed By: Ailyn Womack M.D., Ph.D. eb/penamelie:01/28/2024 07:35:31 ACR BI-RADS Category 1: Negative PARENCHYMAL PATTERN: (D) - The breast(s) demonstrate(s) heterogeneously dense fibroglandular carlos jauregui. BI-RADS CATEGORY: (1) - 1 RECOMMENDATION: (ANNUAL) - Recommend routine annual screening mammography. [id number] 1 year screening LATERALITY: (B)
== END 2024-01-27 10:21 | disposition home or self-care (01) ==
LOC: DI 10:20
DX: Z12.31 Encounter for screening mammogram for malignant neoplasm of breast (principal); R92.333 Mammographic heterogeneous density, bilateral breasts